=== PATIENT | male | born 1975 | race Caucasian/White ===

== ENCOUNTER 2018-05-23 16:42 | Inpatient (IN) | payer OTHER ==
[~2018-05-23] VITALS: Ht 175.3 cm; Wt 68.2 kg
[2018-05-23 16:52] VITALS: BP 145/107
[2018-05-23 18:09] LABS: BASOPHIL % 0.3 % (0-2); PLATELET COUNT 135 x10^3mcL (130-400); RED CELL DISTRIBUTION WIDTH 14.3 % (11.5-14.5)
[2018-05-23 18:18] LABS: CALCIUM 8.6 mg/dL (8.5-10.1); CARBON DIOXIDE 24.6 mmol/L (21-32); CHLORIDE SERUM 107 mmol/L (98-107); CREATININE SERUM 1.3 mg/dL (0.7-1.3); GFR1 > 60 mL/min; GLUCOSE SERUM 110 mg/dL (74-106); POTASSIUM SERUM 4.4 mmol/L (3.5-5.1); SODIUM SERUM 139 mmol/L (136-145)
[2018-05-23 18:22] LABS: ALBUMIN 4.1 g/dL (3.4-5.0); ALKALINE PHOSPHATASE 70 U/L (46-116); ALT/SGPT 17 U/L (16-63); BILIRUBIN TOTAL 0.47 mg/dL (0.20-1.00); CHOLESTEROL 147 mg/dL (<200)
[2018-05-23] MEDS ORDERED: GENVOYA TABLET1 EACH PO (18:22)
[2018-05-23] MEDS ORDERED: COLACE100 MG PO (18:23)
[2018-05-23] MEDS ORDERED: ODEFSEY TABLET1 EACH PO (18:23)
[2018-05-23] MEDS ORDERED: ANTIFUNGAL1% TP (18:23)
[2018-05-23] MEDS ORDERED: ATRIPLA1 TAB PO (18:24)
[2018-05-23] MEDS ORDERED: DOXYCYCLINE HY100 MG PO (18:24)
[2018-05-23] MEDS ORDERED: ALL DAY ALLERGY10 M2 PO (18:24)
[2018-05-23 18:28] LABS: AST/SGOT 16 U/L (15-37); TOTAL PROTEIN, SERUM 8.4 g/dL (6.4-8.2)
[2018-05-23 19:02] LABS: AMPHETAMINE QUAL UR POSITIVE (See below)
[2018-05-23 20:09] VITALS: BP 151/64
[2018-05-23 23:26] VITALS: BP 125/87
[2018-05-24 03:26] VITALS: BP 105/72
[2018-05-24 08:08] VITALS: BP 121/73
[2018-05-24 08:10] VITALS: Ht 175.3 cm; Wt 68.2 kg
[2018-05-24 09:48] LABS: microscopic required? YES; urine erythrocyte 1+ (NEGATIVE)
[2018-05-24 11:14] VITALS: BP 104/64
[2018-05-24 15:50] VITALS: BP 107/66
[2018-05-24 20:22] VITALS: BP 104/63
[2018-05-24 23:29] VITALS: BP 105/62
[2018-05-25 03:23] VITALS: BP 110/60
[2018-05-25 07:35] VITALS: BP 106/73
[2018-05-25 12:00] VITALS: BP 120/76
[2018-05-25 13:04] VITALS: BP 119/74
== END 2018-05-25 18:00 | disposition other institution (70) | DRG 917 ==
LOC: ED 16:42 → IC 18:47 → EDBEDREQSVC 18:49 → EDBEDREQ 18:50 → IC 19:50
PROVIDERS: Internal Medicine; Specialist
PROC: 0BH17EZ Insertion of Endotracheal Airway into Trachea, Via Natural or Artificial Opening (ICD-10-PCS; principal; 2018-05-23)
DX: T50.901A Poisoning by unspecified drugs, medicaments and biological substances, accidental (unintentional), initial encounter (principal); G92 Toxic encephalopathy; J96.01 Acute respiratory failure with hypoxia; F15.10 Other stimulant abuse, uncomplicated; Z88.6 Allergy status to analgesic agent; Y92.89 Other specified places as the place of occurrence of the external cause; Z88.8 Allergy status to other drugs, medicaments and biological substances; B19.20 Unspecified viral hepatitis C without hepatic coma
CPT/HCPCS: 36600; 82962; 83880; G0480; J0330; J2704; J3490; J7620; Q0092; Q9967